=== PATIENT | male | born 1950 | race Caucasian/White ===

== ENCOUNTER → 2016-08-01 | Day surgery (SDC) | payer MEDICARE ==
[~2016-08-01] MED LIST: ADVA100A INH; ATROPINE SULFATE 1% OPHT SOLN 2 ML BTL ONE; AVOD0.5C PO; DEXAMETHASONE SOD PHOS 4 MG/ML VIAL ONE; DOXA1 PO; EPINEPHrine HCL (1:1000) 1 MG/ML VIAL ONE; FLURBIPROFEN 0.03% OPHT SOLN 2.5 ML BTL ONE; HYALURONIDASE/LIDOCAINE/BUPIVACAINE 11 ML SYR TL ONE; LACTATED RINGER'S 1000 ML INJ 1,000 ML ONE; MONT10TA2 PO; NEOMYCIN/POLYMYXIN/DEXAMETHASONE OPTH OINT 3.5 GM TUBE ONE; PHENYLEPHRINE HCL 2.5 % OPTH SOLN 15 ML BTL ONE; PROPOFOL 200 MG/20 ML AMP IV ONE; SODIUM CHLORIDE 0.9% INJ 10 ML ONE; TEST-25 IM; TETRACAINE 0.5% OPTH SOLN 4 ML BTL ONE; TROPICAMIDE 1% OPHT SOLN 15 ML BTL ONE; [UNRECOGNIZED DRUG - OTHER] PO; ceFAZolin INJ 1,000 MG VIAL ONE
--- NOTE | 2016-08-05 19:56 | MP ---
cc: SILVERIO FRANCO MD DATE OF SURGERY: 08/01/2016. PREOPERATIVE DIAGNOSIS: Previous retinal detachment, peripheral vitreoretinopathy left eye. 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 OPERATION: Pars plana vitrectomy, membrane peeling, endolaser gas-fluid exchange and silicone oil removal, left eye. SURGEON: Silverio Franco MD ANESTHESIA: MAC. COMPLICATIONS: None. DESCRIPTION OF THE PROCEDURE IN DETAIL: After informed consent was obtained, the patient brought to the operating room, placed, under brief anesthesia of propofol, prepped and draped in the usual sterile fashion. A wire eyelid speculum was placed in the patient's left eye. A 23-gauge vitrectomy cannulas were then placed, one lower temporal, supratemporal and supranasal quadrants 3 mm posterior to the corneal scleral limbus. Infusion cannula was placed lower temporally. The patient had a previous vitrectomy with some of the residual vitreous, at the vitreous space was excised using the vitreous cutter. Posteriorly either the internal limiting membrane or an epiretinal membrane was stained with ICG dye over the surface of the macula. This was then carefully peeled from around the macula hole. Careful indirect ophthalmoscopy with scleral depression was then performed. No peripheral breaks were noted. A complete air-fluid was then performed. The silicone oil gas then used to fill the vitreous cavity. The three vitrectomy cannulas were then removed. Each site was closed with interrupted 7-0 Vicryl suture. Subconjunctival injections of Dexamethasone and Ancef were placed. Atropine drops. Maxitrol ointment and patch and shield were then applied. The patient tolerated the procedure well. There were no complications. He will followup tomorrow in our [place] office. ADDENDUM: The patient had membranes inferotemporally which were creating traction. As the oil was removed, the retina lifted up in this area and there was a small retinal break. The membranes were peeled and a small retinectomy was performed inferotemporally to relieve the traction. A complete air-fluid exchange was performed and the retina flattened nicely and endolaser was used to treat the edge of the retinectomy. The air was then exchanged for 16% C3F8. The patient will remain on his right side for the next week. He will follow up tomorrow in our [place] office. MD CURTIS Vital/JCC /11:23 AM /7:50 PM
== END | disposition home or self-care (01) ==
LOC: ESDC 12:39
PROVIDERS: ATTEND Ophthalmology Retina Specialist
DX: H33.42 Traction detachment of retina, left eye (principal)
CPT/HCPCS: 00145; 67108; J0171; J0690; J1100; J7120

== ENCOUNTER → 2016-11-07 | Day surgery (SDC) | payer MEDICARE ==
[~2016-11-07] MED LIST changes: -ATROPINE SULFATE 1% OPHT SOLN 2 ML BTL ONE; +ATROPINE SULFATE 1% OPHT SOLN 5 ML BTL ONE; +LIDOCAINE HCL 2% PF 5 ML VIAL INFIL ONE; +ONDANSETRON HCL 4 MG/2 ML VIAL IV PUSH ONE; -PROPOFOL 200 MG/20 ML AMP IV ONE; +PROPOFOL 500 MG/50 ML BTL IV ONE; +TETRACAINE 0.5% OPTH SOLN 15 ML BTL ONE; -TETRACAINE 0.5% OPTH SOLN 4 ML BTL ONE; +TRIAMCINOLONE ACETONIDE 40 MG/ML VIAL ONE
--- NOTE | 2016-11-12 10:27 | TN ---
cc: SILVERIO FRANCO MD DATE OF SURGERY: 11/07/2016 DATE OF : 1950 PREOPERATIVE DIAGNOSIS Epiretinal membrane, left eye. POSTOPERATIVE DIAGNOSIS Epiretinal membrane, left eye. PROCEDURE Pars plana vitrectomy and membrane peeling, left eye. ANESTHESIA MAC. SURGEON Daja. COMPLICATIONS None. PROCEDURE IN DETAIL After informed consent was obtained, the patient was brought to the operating room, placed under brief anesthesia with Propofol. 10 cc of 50/50 mixture of 0.75% Marcaine 2% Lidocaine was placed in a modified Van Lint lid block as well as peribulbar injection. The patient was then prepared and draped in usual sterile fashion. A wide lid speculum was placed in the patient's left eye. A 23-gauge vitrectomy cannulas were then placed in the lower temporal, superotemporal and superonasal quadrants 3 mm posterior to the cornea scleral limbus. Infusion cannula was placed lower temporally. A core vitrectomy was then performed. The vitrectomy is carried out as far as possible to vitreous space. Attention was then turned to the posterior pole where there was an epiretinal membrane covering the surface of the macula. It was carefully peeled off the macula with intraocular forceps. The same was then done for the internal limiting membrane. Careful indirect ophthalmoscopy with scleral depression was then performed and no peripheral retinal breaks were noted. The three vitrectomy cannulas were then removed. Subconjunctival injections of dexamethasone and Ancef were placed. An Atropine drop, Maxitrol ointment and a patch shield were then applied. The patient tolerated the procedure well. There were no complications. He will follow up tomorrow in our [place] office. ADDENDUM The patient has had a previous vitrectomy due to retinal detachment. Silverio Franco MD TAB/BT /2:12 PM /10:17 AM
== END | disposition home or self-care (01) ==
LOC: ESDC 12:27
PROVIDERS: ATTEND Ophthalmology Retina Specialist
DX: H35.372 Puckering of macula, left eye (principal)
CPT/HCPCS: 00145; 67041; J0171; J0690; J1100; J2405; J3301; J7120